=== PATIENT | male | born 1945 | race Caucasian/White ===

== ENCOUNTER 2018-07-16 07:31 | Day surgery (SDC) | payer MEDICARE, OTHER ==
--- NOTE | 2018-07-16 06:45 | History and Physical - [place] ---
CHIEF COMPLAINT/HISTORY OF CHIEF COMPLAINT: This patient presents with a history of intractable lumbar radiculopathy. Due to the failure of all therapy , a spinal cord stimulator trial was conducted with 75+% pain control. Due to the failure of therapy and the success of the trial, the patient presents today for implantation of a permanent system. PAST MEDICAL HISTORY: Coronary artery disease, diffuse degenerative arthritis, and diabetic peripheral neuropathy. PAST SURGICAL HISTORY: Arthroscopic knee surgery, cataract surgery, and coronary artery bypass. MEDICATIONS ON ADMISSION: List to be provided. ALLERGIES: None. FAMILY/PSYCHOSOCIAL HISTORY: Social history - Noncontributory. Family history - Coronary artery disease. SYSTEMS REVIEW: The patient is appropriate in no acute distress. The remainder of the systems review is positive for glasses. PHYSICAL EXAMINATION: Height and weight are not known. Vital signs are not available. HEENT: Within normal limits. LUNGS: Clear. HEART: Regular rate and rhythm. ABDOMEN: Nontender. MUSCULOSKELETAL: Examination of the musculoskeletal system shows diffuse tenderness across the lumbar spine. Range of motion does produce pain into the lower extremities. There are other sensory abnormalities across the anterior and posterior lumbar region with mild weakness in both legs noted. Ambulation - No assistive device utilized. NEUROLOGIC: Cranial nerves are intact. IMPRESSION: LUMBAR RADICULOPATHY, ICD-10 CODE M54.16 AND M54.17. PLAN: With the failure of therapy and the success of the stimulator trial, he presents today for implantation of a permanent system. The procedure may potentially be outpatient although an overnight stay will be evaluated. The potential risks, side effects, and complications have all been carefully reviewed and discussed. JOB NUMBER: [id number] MTDD
[~2018-07-16 07:31] MED LIST: ACETAMINOPHEN 1,000 MG/100 ML BTL IV ONE; CEFAZOLIN 2 Gram 2 GM/50 ML BAG IVPB ONE; FAMOTIDINE 20MG TABLET PO ONE; MECLIZINE 25 MG TABLET PO ONE; METOCLOPRAMIDE 10 MG TABLET PO ONE
[2018-07-16] MEDS ORDERED: LIDOCAINE 2% MDV (20MG/ML) 20ML VIAL IV ONE (07:32)
[2018-07-16] MEDS ORDERED: LIDOCAINE 1% W/EPI 1:200,000 MPF 30ML SQ ONE (07:32)
[2018-07-16] MEDS ORDERED: MIDAZOLAM HCL 2MG/2ML VIAL IV ONE (07:32)
[2018-07-16] MEDS ORDERED: PROPOFOL 10 MG/ML VIAL IV ONE (07:32)
[2018-07-16] MEDS ORDERED: FENTANYL PF 100MCG/2ML VIAL IV ONE (07:32)
[2018-07-16] MEDS ORDERED: LABETALOL HCL 5MG/ML, 20ML VIAL IV ONE (07:32)
[2018-07-16] MEDS ORDERED: FLUMAZENIL 1MG/10ML VIAL IV ONE (07:32)
[2018-07-16] MEDS ORDERED: HYDRALAZINE 20MG/ML VIAL IV ONE (07:32)
[2018-07-16] MEDS ORDERED: BUPIVACAINE 0.5% W/EPI MPF 30 ML VIAL IVP ONE (07:32)
[2018-07-16] MEDS ORDERED: HYDROCODONE/APAP 7.5/325MG TABLET PO PRN ×2 (12:52)
[2018-07-16] MEDS ORDERED: OXYCODONE/APAP 10MG-325MG TABLET PO PRN ×2 (12:52)
--- NOTE | 2018-07-16 17:50 | Operative Note ---
DATE OF SURGERY: 07/16/18 PREOPERATIVE DIAGNOSIS: INTRACTABLE LUMBAR RADICULOPATHY, ICD-10 CODE = M54.16 AND M54.17. OPERATION: 1. FLUOROSCOPICALLY-GUIDED EPIDURAL ACCESS LEFT T11-12, PLACEMENT OF SPINAL CORD STIMULATOR LEAD 1, A [employer] INFINION 16 WITH 6 ELECTRODES POSITIONED LEFT T7. 2. FLUOROSCOPICALLY-GUIDED EPIDURAL ACCESS LEFT, 12-1 DURAL PUNCTURE WITH CSF LEAK. 3. EPIDURAL ACCESS RIGHT T11-12. PLACEMENT OF SPINAL CORD STIMULATOR LEAD 2, A [employer] 16 WITH 6 ELECTRODES POSITIONED RIGHT T7. 4. COMPLEX PROGRAMMING OF LEAD 1 OVER 20 MINUTES FOLLOWED BY COMPLEX PROGRAMMING OF LEAD 2 OVER 20 MINUTES. 5. INCISION, SUBCUTANEOUS DISSECTION, AND ANCHORING OF LEAD 1 AND LEAD 2 TO SUPRASPINOUS FASCIA USING A [place] G2Link LOCKING ANCHOR AND NONABSORBABLE SUTURE. 6. EPIDURAL BLOOD PATCH AT L1-2, 20 ML AUTOLOGOUS BLOOD STERILE TECHNIQUE DRAWN LEFT ANTECUBITAL. 7. INCISION, SUBCUTANEOUS DISSECTION, AND CREATION OF A SUBCUTANEOUS POUCH AT LEFT FLANK; FLANK SITE PICKED BY PATIENT FOR GENERATOR. 8. TUNNELING FROM MIDLINE INCISION INTO FLANK POUCH EXTENDING LEADS INTO FLANK POUCH. EACH OF THE TWO LEADS INTERFACED TO THE GENERATOR. 9. PLACEMENT OF GENERATOR INTO POUCH. PLACEMENT OF LEADS INTO POUCH. CLOSURE OF INCISIONS VICRYL FOR FASCIA, MERE FOR SKIN. TEGADERM PLACED OVER INCISIONS. 10. COMPLEX PROGRAMMING INTERNAL GENERATOR HOME USE, TWO STIMULATORS 20 MINUTES. 11. PATIENT TRANSPORTED TO RECOVERY ROOM FLAT, PILLOW UNDER HEAD AND KNEES. WILL FOLLOW EPIDURAL BLOOD PATCH PROTOCOL FLAT FOUR, SLOWLY ELEVATED FOR ONE AND THEN WILL BE CONSIDERED DISCHARGEABLE. SURGEON: KRIS RAMOS D.O. ANESTHESIA: LOCAL SEDATION. ANESTHESIA PROVIDER: DIOGO GONZALES CRNA. INDICATION: This patient with a history of intractable lumbar radiculopathy has a failure of all therapies, and a spinal cord stimulator trial, which was conducted in the office on 06/16/18. During the trial procedure, there were extensive arthritic changes, the access somewhat difficult although successful. Due to the failure of therapy and the success of the stimulator trial, he presents today for implantation of a permanent system. PROCEDURE: Intravenous line, vital sign monitoring, IV sedation, prepped and draped in sterile technique. Patient position prone. The epidural interspace left of midline at 11-12 and 12-1 were marked and infiltrated. Using two separate curved axis Epimed needles with [id number], the space at 11-12 left accessed, spinal cord stimulator lead 1, a [employer] Infinion 16 with 6 electrodes positioned left of midline T7. The epidural access left at 12- 1 was attempted. Dural puncture took place with CSF noted. Moving to the right at 11-12, skin infiltrated, a curved axis Epimed needle with [id number] into the space, spinal cord stimulator lead 2, [employer] Infinion 16 with 6 electrodes was then positioned right at T7. Complex programming of lead 1 over 20 minutes was then performed with complex programming lead 2 over 20 minutes resulting in complete patterns of stimulation across the back and into the legs; patient indicating we had all of the areas of the pain. The skin below both needles was infiltrated, incision made, and subcutaneous dissection was conducted to the supraspinous fascia. Each of the leads was anchored to the supraspinous fascia with a [employer] Locking [place] and nonabsorbable suture. At L1-2, which is below the dural puncture, skin infiltrated and an 18- gauge Tuohy needle with [id number] into the epidural space. Simultaneously, 20 mL of autologous blood drawn sterile technique left antecubital. Blood placed onto the field then an epidural blood patch was performed at this level with this blood. Needle removed. At the left flank, a site picked by the patient for the generator, skin infiltrated, incision made, and subcutaneous dissection was conducted to form a pouch of suitable size and depth for the generator, a [employer]cade WaveWriter Programmable Rechargeable. A tunneling tool was used to carry the leads into the generator pouch and then each lead was interfaced to the generator. Antibiotic irrigation and Bovie for hemostasis. With the leads interfaced to the generator, the generator was placed into the pouch, the leads were placed in their own pouch, and then all three incisions were closed Vicryl for fascia and mere for skin. OP-SITE dressing was placed. The patient was transported to the Recovery Room flat following a dural puncture epidural blood patch protocol. He will be flat for four, slowly elevated for one then will be considered dischargeable. He was appropriate. There were no unusual signs or symptoms and no unusual pain. He will be monitored then discharged when ready. DISCHARGE INSTRUCTIONS: 1. Sites to remain clean and dry. No showering or bathing in any way that would disrupt dressings. If it happens, contact the clinic. 2. Standard medications resumed including Levaquin, the antibiotic, 500 mg once a day for 14 days. 3. Patient will keep his activities low for the next 3-5 days. The office will contact him in 24-48 hours to set up an appointment to evaluate the sites. Until then, he is to keep his activities controlled. All other instructions provided. The antibiotic has been called. We will see him and check his incisions in 7-10 days. cc: Dr. Jose Enrique Millan JOB NUMBER: [id number] MTDD
[2018-07-16] MEDS: TERAZOSIN HCL 1 MG CAPSULE PO SCH (21:21)
[2018-07-16] MEDS: SIMVASTATIN 20 MG TABLET PO SCH (21:23)
[2018-07-16] MEDS: METFORMIN 500 MG TABLET PO SCH (21:24)
[2018-07-17] MEDS: LISINOPRIL 5 MG TABLET PO SCH ×2 (00:36→09:43)
[2018-07-17] MEDS: METFORMIN 500 MG TABLET PO SCH ×2 (09:43→21:42)
[2018-07-17] MEDS ORDERED: LISINOPRIL 5 MG TABLET PO ONE (11:55)
[2018-07-17] MEDS ORDERED: LISINOPRIL 10 MG TABLET PO ONE ×2 (12:56→14:05)
[2018-07-17] MEDS ORDERED: HYDRALAZINE 20MG/ML VIAL IV ONE ×4 (13:15→22:25)
[2018-07-17 17:19] LABS: URINE APPEARANCE CLEAR; URINE BILIRUBIN NEGATIVE (NEGATIVE); URINE BLOOD NEGATIVE (NEGATIVE); URINE COLOR YELLOW; URINE KETONE NEGATIVE (NEGATIVE); URINE LEUKOCYTE ESTERASE NEGATIVE (NEGATIVE); URINE NITRITE NEGATIVE (NEGATIVE); URINE PROTEIN NEGATIVE (NEGATIVE); URINE UROBILINOGEN 0.2 E.U./dL (0.20 - 1.00)
--- NOTE | 2018-07-17 19:34 | Consult ---
Consult Order Detail - Reason for Consult Consult Date: 07/17/18 Consult Order Detail: HTN urgency - Chief Complaint Chief Complaint: LUMBOSACRAL RADICULOPATHY HPI Consult - History of Present Illness History of Present Illness: PMHx: HTN, BPH, TORRI, DMII (controlled with oral medications), H/o PVC's, chronic pain 2/2 to diffuse DJD Pt was admitted to [facility] for placement of permanent spinal stimulator after trial. Dr. Lopez performed the surgery on 07/16/2018. The pt tolerated the procedure well but had some additional bleeding from the incision and was watched overnight for resolution. Bleeding has resolved today and the pt was supposed to be discharged. Upon discharge the nurse states that she was taking the vitals and noted his BP to be 218/107. The nurse states that she called Dr Lopez and he instructed to give an additional total dose of 15mg of lisinopril and the medical team was consulted for further management. By the time I arrived to the pt's bedside his BP was 210/112. He denied any symptoms of headache, CP, palpitations, blurred vision, edema, SOB. His states that his BP in the past was usually on the low side but recently for the past few weeks it has been on the higher side even to the 180' s. ROS Reviewed: No additional complaints except as noted below Constitutional: Denies: Chills, Fever, Malaise, Weakness, Weight change Eyes: Denies: Eye pain, Photophobia, Vision change - ENT ENT: Reports: Hearing loss (chronic). Denies: Congestion, Dental pain, Ear pain , Throat pain - Cardiovascular Cardiovascular: Reports: Arrhythmia (PVC's in past, no palpitations currently), Murmurs (chronic per pt). Denies: Chest pain, Dyspnea on exertion, Edema, Orthopnea, Palpitations, Paroxysmal nocturnal dyspnea, Syncope - Gastrointestinal Gastrointestinal: Reports: Melena. Denies: Abdominal pain, Constipation, Diarrhea, Nausea, Vomiting - Genitourinary Genitourinary: Reports: Hematuria (nurse states that his urine did look pink intermittently after surgery). Denies: Dysuria, Frequency, Incontinence, Retention, Urgency - Musculoskeletal Musculoskeletal: Reports: Back pain (chronic), Neck pain (chronic) - Skin Skin: Denies: Change in color, Rash - Psychiatric Psychiatric: Denies: Depression Past Medical History - SOCIAL HISTORY Smoking Status: Former smoker Alcohol Use: None - RESPIRATORY Hx Respiratory Disorders: Yes Hx Pneumonia: Yes (as a child) Comment:: chronic sinus problems - CARDIOVASCULAR Hx Cardio Disorders: Yes Hx Abnormal EKG: Yes (25 yrs ago) Hx Cardiac Cath: Yes Hx Hypertension: Yes (fair control) Hx Coronary Artery Disease: Yes Hx Coronary Artery Bypass Graft: Yes (double bypass 25 yrs ago) Comment:: due to back pain - NEURO Hx Neuro Disorders: Yes Hx Dizziness: Yes (at times with low blood pressure) Hx Neuropathy: Yes (feet) Comment:: some problems with tremors seeing neuroligist - GI Hx GI Disorders: Yes Hx Reflux: Yes (occassionally with caffeine) - Hx Genitourinary Disorders: Yes Hx Bladder Problem: Yes (frequency and small amts) Hx Prostate Problems: Yes (enlatged) - ENDOCRINE Hx Endocrine Disorders: Yes Hx Diabetes: Yes (dx'd 2-3 yrs ago) Comment:: blood sugars around 117 A1C 6.2 - MUSCULOSKELETAL Hx Musculoskeletal Disorders: Yes Hx Arthritis: Yes - PSYCH Hx Psych Problems: No - HEMATOLOGY/ONCOLOGY Hx Hematology/Oncology Disorders: Yes Hx Clotting Problems: Yes (seems to bleed easily) Family Medical History Hx Heart Disease: Father Hx Seizures: Mother H&P Meds - Home Medications and Allergies Allergies Allergy/AdvReac Type Severity Reaction Status Date / Time No Known Drug Allergies Allergy Verified 07/14/18 09:19 Physical Exam - Vital Signs Vital Signs: Vital Signs - Last 24 Hrs Temp Pulse Resp BP BP Pulse Ox 07/17/18 17:00 98.1 F 104 H 16 161/87 98 07/17/18 15:17 130/74 07/17/18 13:45 160/74 07/17/18 12:34 210/112 07/17/18 12:00 218/107 07/17/18 09:00 108 H 20 07/17/18 08:00 98.6 F 105 H 18 199/101 95 07/17/18 04:00 98.9 F 108 H 20 180/99 95 07/17/18 00:32 107 H 20 195/97 07/17/18 00:30 109 H 20 202/99 202/99 95 07/16/18 20:06 18 07/16/18 20:00 98.7 F 104 H 20 159/80 95 - General General Appearance: Alert, Oriented x3, No acute distress Limitations: No limitations - Head Head exam: Normocephalic, Normal inspection Head exam detail: negative: Abrasion - Eye Eye exam: Normal appearance, PERRL, EOMI. negative: Conjunctival injection, Scleral icterus Pupils: Normal accommodation - ENT ENT exam: Normal exam Ear exam: Normal external inspection Nasal Exam: Normal inspection Mouth exam: Normal external inspection Teeth exam: Dental caries Throat exam: Normal inspection - Neck Neck exam: negative: Lymphadenopathy - Respiratory Respiratory exam: Normal lung sounds bilaterally - Cardiovascular Cardiovascular Exam: Normal rhythm, Systolic murmur (2/6 heard loudest in the pulmonic area), Tachycardia - GI/Abdominal GI/Abdominal exam: Soft, Normal bowel sounds. negative: Mass, Tenderness - Rectal Rectal exam: Deferred - exam: Deferred - Back Back exam: Reports: Other (repaired incision sites are clean, dry, intact, no signs of infection) - Neurological Neurological exam: Alert, Oriented X3 - Psychiatric Psychiatric exam: negative: Anxious - Other Other Exam Information: Pt is very hard of hearing Results - Labs Labs Last 24 Hours: Laboratory Results - last 24 hr 07/17/18 07/17/18 16:25 17:00 Urine Color Yellow Urine Appearance Clear Urine pH 6.5 Ur Specific [place] 1.010 Urine Protein Negative Urine Glucose (UA) 100 mg/dl H Urine Ketones Negative Urine Blood Negative Urine Nitrite Negative Urine Bilirubin Negative Urine Urobilinogen 0.2 Ur Leukocyte Esterase Negative Antibiotic Sensitivity Cancelled Assessment and Plan - Assessment and Plan (1) Hypertensive urgency Current Visit: Yes Status: Acute Base Code: I16.0 - HYPERTENSIVE URGENCY Comment: - Pt currently asymptomatic. - EKG ordered. - Tele - UA given recent "pink urine" and cx, bladder scan to see if retaining post anesthesia. - Inserted IV and given 20mg IV hydralazine. Rechecked BP in 20 min and 160/78. - Given additional 10mg lisinopril and down to 130/74, rechecked in one hour and 161/87, will continue to monitor closely. Will not drop BP too low given risk of NV or stroke. - if SBP > 180 or DBP > 100 give 10mg hydralazine PRN - CBC and CMP pending to eval renal and liver function. - Disposition Disposition: Likely D/C in AM if BP continues to stay stable.
[2018-07-17] MEDS ORDERED: HYDRALAZINE 20MG/ML VIAL IV PRN (20:04)
[2018-07-17] MEDS ORDERED: HYDRALAZINE HCL 10 MG TABLET PO ONE (20:47)
[2018-07-17 21:03] LABS: BASO % 0.2 % (0-6); EOS % 0.3 % (0-6); GRAN % 73.2 % (47-80); HEMATOCRIT 39.5 % (42.0-52.0); HEMOGLOBIN 13.6 gm/dl (14.0-18.0); LYMPH % 17.1 % (16-45); MEAN CELL VOLUME 89.2 fl (81-97); MEAN CORPUSCULAR HEMOGLOBIN 30.6 pg (27-33); MEAN CORPUSCULAR HGB CONC 34.4 g/dl (32-36); MEAN PLATELET VOLUME 10.8 fl (7.4-10.4); MONO % 9.2 % (0-9); PLATELET COUNT 189 K/uL (130-400); RED BLOOD COUNT 4.43 M/uL (4.40-5.70); RED CELL DISTRIBUTION WIDTH 13.1 % (11.5-14.5)
[2018-07-17 21:21] LABS: ALB/GLOB RATIO 1.3 (1.1-1.8); ALBUMIN 4.1 g/dL (4.0-5.0); ALKALINE PHOSPHATASE 125 U/L (40-129); ALT/SGPT 10 U/L (<41); AST/SGOT 16 U/L (10.0-50.0); BLOOD UREA NITROGEN 17 mg/dL (8-23); CREATININE 1.4 mg/dL (0.7-1.2); EST GLOMERULAR FILTRATION RATE 53 mL/min; GLUCOSE,RANDOM 147 mg/dL (74-109); TOTAL PROTEIN 7.2 g/dL (6.6-8.7)
[2018-07-17] MEDS: SIMVASTATIN 20 MG TABLET PO SCH (21:42)
[2018-07-17] MEDS: METOPROLOL SUCC 25 MG TAB.ER PO SCH (21:42)
[2018-07-17] MEDS: TERAZOSIN HCL 1 MG CAPSULE PO SCH (21:43)
[2018-07-17] MEDS ORDERED: ONDANSETRON HCL IV 4 MG/2 ML VIAL IVP PRN (22:24)
[2018-07-18] MEDS: LISINOPRIL 20 MG TABLET PO SCH ×2 (06:17→10:32)
[2018-07-18] MEDS: METFORMIN 500 MG TABLET PO SCH (09:39)
[2018-07-18] MEDS: METOPROLOL SUCC 25 MG TAB.ER PO SCH (09:39)
[2018-07-18] MEDS ORDERED: LISINOPRIL 20 MG TABLET PO SCH (10:00)
--- NOTE | 2018-07-18 15:18 | Physician Progress Note ---
Subjective - Date Date of Physician Progress Note: 07/18/18 - Subjective Subjective Comment: Pt being seen for medical management of hypertension per consult from Dr. Lopez. Over night, blood pressure better controlled. Last BP at approximately 1100 was 145/69 after pt had taken 40mg of Lisinopril. Objective - Vital Signs Vital Signs: Vital Signs - Last 24 Hrs Temp Pulse Resp BP Pulse Ox 07/18/18 11:12 66 18 145/69 96 07/18/18 09:00 98.1 F 87 18 136/70 94 L 07/18/18 08:12 20 07/18/18 05:00 98.0 F 94 H 16 127/78 96 07/17/18 21:20 97.7 F 176/96 07/17/18 21:00 110 H 18 182/107 96 07/17/18 17:00 98.1 F 104 H 16 161/87 98 07/17/18 15:17 130/74 - General General Appearance: Alert - Head Head exam detail: negative: Abrasion - Eye Eye exam: negative: Conjunctival injection, Scleral icterus - ENT Nasal Exam: Normal inspection Mouth exam: Normal external inspection Teeth exam: Dental caries Throat exam: Normal inspection - Neck Neck exam: negative: Lymphadenopathy - Respiratory Respiratory exam: Normal lung sounds bilaterally - Cardiovascular Cardiovascular Exam: Normal rhythm, Systolic murmur (2/6 heard loudest in the pulmonic area), Tachycardia - GI/Abdominal GI/Abdominal exam: Soft, Normal bowel sounds. negative: Mass, Tenderness - Rectal Rectal exam: Deferred - exam: Deferred - Back Back exam: Reports: Other (repaired incision sites are clean, dry, intact, no signs of infection) - Neurological Neurological exam: Alert, Oriented X3 - Psychiatric Psychiatric exam: negative: Anxious Assessment and Plan - Assessment and Plan (1) Hypertensive urgency Current Visit: Yes Status: Acute Base Code: I16.0 - HYPERTENSIVE URGENCY Comment: 07/18/18 - Last documented BP 145/69 - Creat 1.4, eGFR 53 (no baseline Creat established) - Continue Lisinopril 40mg daily however pt to f/u with PCP within 1-2 days in order to make adjustments to BP medications based on kidney function - Disposition Disposition: Pt to f/u with PCP holly to evaluate blood pressure medication. Results - Labs Result Diagrams: 07/17/18 21:30 07/17/18 21:30 Labs Last 24 Hours: Laboratory Results - last 24 hr 07/17/18 07/17/18 07/17/18 16:25 17:00 21:30 WBC 10.0 RBC 4.43 Hgb 13.6 L Hct 39.5 L MCV 89.2 MCH 30.6 MCHC 34.4 RDW 13.1 Plt Count 189 MPV 10.8 H Gran % 73.2 Lymphocytes % 17.1 Monocytes % 9.2 H Eosinophils % 0.3 Basophils % 0.2 Sodium Potassium Chloride Carbon Dioxide Anion Gap BUN Creatinine Estimated GFR POC Glucose Random Glucose Calcium Total Bilirubin AST ALT Alkaline Phosphatase Troponin T Total Protein Albumin Globulin Albumin/Globulin Ratio Urine Color Yellow Urine Appearance Clear Urine pH 6.5 Ur Specific [place] 1.010 Urine Protein Negative Urine Glucose (UA) 100 mg/dl H Urine Ketones Negative Urine Blood Negative Urine Nitrite Negative Urine Bilirubin Negative Urine Urobilinogen 0.2 Ur Leukocyte Esterase Negative Antibiotic Sensitivity Cancelled 07/17/18 07/17/18 07/18/18 21:30 21:58 06:26 WBC RBC Hgb Hct MCV MCH MCHC RDW Plt Count MPV Gran % Lymphocytes % Monocytes % Eosinophils % Basophils % Sodium 140 Potassium 4.0 Chloride 100 Carbon Dioxide 20.0 L Anion Gap 20.0 H BUN 17 Creatinine 1.4 H Estimated GFR 53 POC Glucose 148 H Random Glucose 147 H Calcium 10.1 Total Bilirubin 0.70 AST 16 ALT 10 Alkaline Phosphatase 125 Troponin T < 0.010 < 0.010 Total Protein 7.2 Albumin 4.1 Globulin 3.1 Albumin/Globulin Ratio 1.3 Urine Color Urine Appearance Urine pH Ur Specific [place] Urine Protein Urine Glucose (UA) Urine Ketones Urine Blood Urine Nitrite Urine Bilirubin Urine Urobilinogen Ur Leukocyte Esterase Antibiotic Sensitivity 07/18/18 14:00 WBC RBC Hgb Hct MCV MCH MCHC RDW Plt Count MPV Gran % Lymphocytes % Monocytes % Eosinophils % Basophils % Sodium Potassium Chloride Carbon Dioxide Anion Gap BUN Creatinine Estimated GFR POC Glucose Random Glucose Calcium Total Bilirubin AST ALT Alkaline Phosphatase Troponin T Cancelled Total Protein Albumin Globulin Albumin/Globulin Ratio Urine Color Urine Appearance Urine pH Ur Specific [place] Urine Protein Urine Glucose (UA) Urine Ketones Urine Blood Urine Nitrite Urine Bilirubin Urine Urobilinogen Ur Leukocyte Esterase Antibiotic Sensitivity DVT/PE Assessment - Risk for VTE Risk for VTE: Yes Risk Level: Moderate Risk Assessment Date: 07/18/18 Risk Assessment Time: 15:28 VTE Orders Placed or Will Be Placed: No VTE Reason for No Prophylaxis: Not Indicated - Active Medicaitons Current Medications: Current Medications Hydrocodone Bitart/Acetaminophen ([place] 7.5mg/325mg) 1 each PO Q3H PRN PRN Reason: PAIN - MILD (1-4) Hydrocodone Bitart/Acetaminophen ([place] 7.5mg/325mg) 2 each PO Q3H PRN PRN Reason: PAIN - MILD (1-4) Lisinopril (Zestril) 40 mg PO DAILY [facility] Last Admin: 07/18/18 10:32 Dose: Not Given Metformin HCl (Glucophage Ir) 500 mg PO DAILY [facility] Last Admin: 07/18/18 09:39 Dose: 500 mg Metformin HCl (Glucophage Ir) 1,000 mg PO QHS [facility] Last Admin: 07/17/18 21:42 Dose: 1,000 mg Metoprolol Succinate (Toprol Xl) 25 mg PO DAILY [facility] Last Admin: 07/18/18 09:39 Dose: 25 mg Ondansetron HCl (Zofran) 4 mg IVP Q6H PRN PRN Reason: NAUSEA Last Admin: 07/17/18 22:41 Dose: 4 mg Oxycodone/Acetaminophen (Percocet 10-325 Mg Tablet) 1 each PO Q4H PRN PRN Reason: PAIN - MODERATE (5-7) Oxycodone/Acetaminophen (Percocet 10-325 Mg Tablet) 2 each PO Q4H PRN PRN Reason: PAIN - MODERATE (5-7) Simvastatin (Zocor) 20 mg PO QHS [facility] Last Admin: 07/17/18 21:42 Dose: 20 mg Terazosin HCl (Hytrin) 5 mg PO QHS [facility] Last Admin: 07/17/18 21:43 Dose: 5 mg AMI Plan - Labs Result Diagrams: 07/17/18 21:30 07/17/18 21:30
--- NOTE | 2018-07-19 12:10 | RADIOLOGY REPORT ---
EXAM: SPINE, 1 VIEW HISTORY: POST SPINAL CORD STIMULATOR IMPLANT. TECHNIQUE: Single AP view of the spine from the upper thoracic region to the mid lumbar region. COMPARISON: None. FINDINGS: Metallic battery pack left mid to lower abdomen with the stimulator wires extending to the spine at the L1 level and ascending up to the T7 level. Prominent spurring in the mid to lower thoracic spine and visualized lumbar spine. Surgical clips right upper quadrant of the abdomen. Post-op sternotomy. Poor visualization left hemidiaphragm laterally may represent a small amount of atelectasis or infiltrate. IMPRESSION: SPINAL STIMULATOR IN PLACE WITH THE ELECTRODE LEADS EXTENDING UP TO THE T7 LEVEL. JOB NUMBER: [id number] MTDD
== END 2018-07-18 15:28 | disposition home or self-care (01) ==
LOC: SUR 07:31 → MEDSURG 10:55 → SUR 07-18 09:22 → MEDSURG 07-18 09:23 → UNDOADMOB 07-18 09:23 → SUR 07-18 15:28
PROVIDERS: ATTEND Pain Medicine Interventional Pain Medicine
DX: M54.16 Radiculopathy, lumbar region (principal); M54.17 Radiculopathy, lumbosacral region; I10 Essential (primary) hypertension; E11.9 Type 2 diabetes mellitus without complications; E78.00 Pure hypercholesterolemia, unspecified; I25.10 Atherosclerotic heart disease of native coronary artery without angina pectoris; N40.0 Benign prostatic hyperplasia without lower urinary tract symptoms
CPT/HCPCS: 63650; 63685; 01936; 95972; 85025; 80053; 36416; 82948; 81003; 84484; 72020; 93005; J2405; J3010; J0690; J3490; C1820; C1883